=== PATIENT | male | born 1965 | race African-American/Black ===

== ENCOUNTER 2019-08-10 22:01 | Emergency (ER) | payer BC, SELFPAY ==
--- OUTSIDE RECORDS SUMMARY | 2019-08-10 22:03 | XMS REPORT | Continuity of Care Document ---
:1965 Author Organization [facility] t Address [address] [place] [address] Care Team Providers Name Role Phone Alessia HARDING, Janine Garner Attending Clinician Yohan LAUGHLIN S Attending Clinician Sonny CLIENT DELIVERY MANAGER, G Attending Clinician Problems This patient has no known problems. Allergies, Adverse Reactions, Alerts This patient has no known allergies or adverse reactions. Medications This patient has no known medications. Procedures This patient has no known procedures. Encounters Start End Encounter Admission Attending Care Care Encounter Source Date/Time Date/Time Type Type Clinicians Facility Department ID 2019-08-07 2019-08-07 Emergency [place] [id number] 01:56:28 03:54:00 Janine Lo [id number] [place] [id number] [place] [address] [id number] 2019-08-05 2019-08-05 [id number] 14:46:49 18:35:00 Eda Lo [id number] [place] [id number] [place] [address] [id number] 2019-08-04 2019-08-04 [place] [id number] 18:16:09 22:16:00 Abena Madhavi Wally [id number] [place] [id number] [place] [address] [id number] Results This patient has no known results.
--- OUTSIDE RECORDS SUMMARY | 2019-08-10 22:04 | XMS REPORT | Summary of Care ---
:1965 Author Organization [facility] Address [address] [place] [id number] Care Team Providers Name Role Phone Pcp, Patient Does Not Have A Primary Care Provider +[id number] 0-0000 Reason for Visit Reason Comments Hypertension Auth/Cert Status Reason Specialty Diagnoses / Referred By Referred To Procedures Contact Contact Emergency Medicine Diagnoses HIGH BP,HEADACHE [facility] Emergency Dept [address] [place] [address] Fax: Encounter Details Date Type Department Care Team Description 08/05/2019 Emergency ADC-Emergency Eda Almanzar, QIAN Fatigue, unspecified type (Primary Dx); Department [address] Secondary hypertension; [address] [place], [place] [address] [phone] [place] [id number] [phone] Allergies No Known Allergiesdocumented as of this encounter (statuses as of 08/05/2019) Medications Medication Sig Dispensed Refills Start Date End Date Status atenolol (TENORMIN) Take 100 mg by 0 Active 100 mg tablet mouth daily. cloniDINE (CATAPRES) Take 0.1 mg by 0 Active 0.1 mg tablet mouth 3 (three) times daily. AMLODIPINE BESYLATE Take 5 mg by mouth 0 Active (AMLODIPINE ORAL) daily. LISINOPRIL ORAL Take by mouth 0 Active daily. traMADOL (ULTRAM) 50 Take 1 tablet by 20 tablet 0 08/28/2016 Active mg tablet mouth every 6 (six) hours as needed for Pain (scale 7-10). benzonatate 200 mg Take 1 capsule by 21 capsule 0 12/10/2016 Active capsule mouth 3 (three) times daily as needed for Cough. tamsulosin 0.4 mg 24 Take 1 capsule by 30 capsule 5 12/24/2016 Active hr mouth at bedtime. capsuleIndications: Urinary frequency, Redundant prepuce and phimosis, Lichen sclerosus aspirin 81 mg Take 81 mg by 0 Ac tive chewable tablet mouth. azithromycin 250 mg Take 1 tablet by 6 tablet 0 06/02/2017 Active tabletIndications: mouth Bronchitis SEE-INSTRUCTIONS. Take 500 mg day 1, then 250 mg days 2 to 5. albuterol (PROAIR Inhale 2 Puffs 8.5 g 0 07/31/2017 Active HFA) 90 mcg/actuation every 4 (four) inhaler hours as needed for Wheezing or Shortness of Breath. cloNIDine 0.1 mg Take 1 tablet by 45 tablet 0 08/04/2019 Active tabletIndications: mouth 3 (three) Malignant times daily. hypertension documented as of this encounter (statuses as of 08/05/2019) Active Problems Problem Noted Date Chest pain 04/16/2017 HTN (hypertension) 04/16/2017 Phimosis 12/25/2016 Overview: Added automatically from request for anju karson [id number] Lichen sclerosus 12/25/2016 Overview: Added automatically from request for anju karson [id number] documented as of this encounter (statuses as of 08/05/2019) Social History Tobacco Use Types Packs/Day Years Used Date Never Smoker Smokeless Tobacco: Never Used Alcohol Use Drinks/Week oz/Week Comments No Sex Assigned at Date Recorded Not on file Job Start Date Occupation Industry Not on file Not on file Not on file Travel History Travel Start Travel End No recent travel history available. COVID-19 Exposure Response Date Recorded In the last month, have you been in contact with No / Unsure 08/04/2019 6:08 PM CDT someone who was confirmed or suspected to have Coronavirus / COVID-19? documented as of this encounter Last Filed Vital Signs Vital Sign Reading Time Taken Comments Blood Pressure 159/103 08/05/2019 6:30 PM CDT Pulse 54 08/05/2019 6:30 PM CDT Temperature 36.6 C (97.8 F) 08/05/2019 2:48 PM CDT Respiratory Rate 15 08/05/2019 6:30 PM CDT Oxygen Saturation 99% 08/05/2019 6:30 PM CDT Inhaled Oxygen Concentration - - Weight 88.5 kg (195 lb) 08/05/2019 2:48 PM CDT Height - - Body Mass Index 27.2 08/04/2019 6:15 PM CDT documented in this encounter Discharge Instructions Eda Malin PAC - 08/05/2019Take your blood pressure once or twice a day and keep a log of it. Follow up with your primary care physician for further evaluation of your blood pressure and to adjust your medication as needed. Follow up with the ER if you feel like you are getting worse or developing new symptoms such as chest pain or shortness of breath with your current symptoms. AttachmentsThe following attachments cannot be sent through Care Everywhere.High Blood Pressure, Controlling (Polish)Hypokalemia (Polish)documented in this encounter Plan of Treatment Health Maintenance Due Date Last Done Comments DTaP,Tdap,and Td Vaccines (1 - 1976 Tdap) Depression Screening 1977 COLONOSCOPY 2015 Zoster Recombinant Vaccine 2015 (SHINGRIX) (1 of 2) INFLUENZA VACCINE (Season Ended) 2019 PNEUMOCOCCAL 0-64 YEARS COMBINED Aged Out No longer eligible based on SERIES patient's age to complete this topic documented as of this encounter Procedures Procedure Name Priority Date/Time Associated Diagnosis Comme nts CBC WITH DIFFERENTIAL STAT 08/05/2019 3:17 Fatigue, unspec ified Results for this PM CDT type procedure are in Secondary the results hypertension section. CBC WITH DIFFERENTIAL STAT 08/05/2019 3:17 Fatigue, unspec ified Results for this PM CDT type procedure are in Secondary the results hypertension section. BASIC METABOLIC PANEL STAT 08/05/2019 3:17 Fatigue, unspec ified Results for this (NA, K, CL, CO2, PM CDT type procedure are in GLUCOSE, BUN, Secondary the results CREATININE, CA) hypertension section. TROPONIN I STAT 08/05/2019 3:17 Fatigue, unspecified Res ults for this PM CDT type procedure are in Secondary the results hypertension section. CONSENT/REFUSAL FOR Routine 08/05/2019 2:39 DIAGNOSIS AND PM CDT TREATMENT documented in this encounter Results CBC WITH DIFFERENTIAL (08/05/2019 3:17 PM CDT) Pathologist Sig nature WBC 2.95 (L) 4.20 - 10.70 [facility] 10*3/L [facility] RBC 5.22 4.26 - 5.52 [facility] 10*6/L [facility] HGB 13.7 12.2 - 16.4 [facility] g/dL [facility] HCT 41.2 38.4 - 49.3 % [facility] MCV 78.9 (L) 81.7 - 95.6 fL [facility] MCH 26.2 26.1 - 32.7 pg [facility] MCHC 33.3 31.2 - 35.0 [facility] g/dL [facility] RDW-SD 41.1 38.5 - 51.6 fL [facility] RDW-CV 14.4 12.1 - 15.4 % [facility] PLT 183 150 - 328 [facility] 10*3/L [facility] MPV 10.2 9.8 - 13.0 fL [facility] NRBC/100 WBC 0.0 0.0 - 10.0 /100 [facility] WBCs [facility] NRBC x10^3 <0.01 10*3/L [facility] GRAN MAT (NEUT) % 48.5 % [facility] IMM GRAN % 0.30 % [facility] LYMPH % 36.6 % [facility] MONO % 8.1 % [facility] EOS % 5.8 % [facility] BASO % 0.7 % [facility] GRAN MAT x10^3(ANC) 1.43 (L) 1.99 - 6.95 [facility] 10*3/uL [facility] IMM GRAN x10^3 <0.03 0.00 - 0.06 [facility] 10*3/uL [facility] LYMPH x10^3 1.08 (L) 1.09 - 3.23 [facility] 10*3/uL [facility] MONO x10^3 0.24 (L) 0.36 - 1.02 [facility] 10*3/uL [facility] EOS x10^3 0.17 0.06 - 0.53 [facility] 10*3/uL [facility] BASO x10^3 <0.03 0.01 - 0.09 [facility] 10*3/uL [facility] Specimen Blood - ARM, RIGHT Performing Organization Address City/State/Zipcode Phone Number [facility] CLIA: [id number], [address] [place], [place] [address] TROPONIN I (08/05/2019 3:17 PM CDT) Pathologist Sig nature TROPONIN I <0.012 <=0.034 ng/mL [facility] Specimen Blood - ARM, RIGHT Narrative Performed At Equal or Less than 0.034 ng/ml---Normal [facility] Note: Cardiac troponin begins to rise 3-4 hours after the onset of ischemia. Repeat in 4-6 hours if the sample was drawn within 3-4 hours of the onset of the symptom and found normal. Between 0.035 and 0.120 ng/mL--- Borderline. Questionable myocardial injury or necros is Note: Serial measurement may be necessary to confirm or exclude the diagnosis of myocardial injury or necrosis; Clinical correlation (symptoms, EKGs, imaging studies, and others) required; Repeat in 4-6 hours if clinically indicated. Equal or Higher than 0.121 ng/mL---Abnormal. Myocardial Injury or Necrosis Likely Biotin has been reported to cause a negative bias, interpret results relative to patient's use of biotin. Performing Organization Address [facility]/Zipcode Phone Number [facility] CLIA: [id number], [address] [place], [place] [address] BASIC METABOLIC PANEL (NA, K, CL, CO2, GLUCOSE, BUN, CREATININE, CA) (08/05/2019 3:17 PM CDT) NA 136 135 - 145 [facility] mmol/L [facility] K 3.2 (L) 3.5 - 5.0 [facility] mmol/L [facility] CL 106 98 - 108 mmol/L [facility] CO2 TOTAL 26 23 - 31 mmol/L [facility] AGAP 4 2 - 16 [facility] BUN 21 7 - 23 mg/dL [facility] GLUCOSE 127 (H) 70 - 110 mg/dL [facility] CREATININE 1.33 (H) 0.60 - 1.25 [facility] mg/dL [facility] CALCIUM 8.1 (L) 8.6 - 10.6 [facility] mg/dL [facility] eGFR Calculation 56.0 mL/min/1.73m2 [facility] ([facility] Lebanese) eGFR Calculation 67.9 mL/min/1.73m2 [facility] () [facility] Specimen Blood - ARM, RIGHT Narrative Performed At Association of Glomerular Filtration Rate (GFR) [facility] and Staging of Kidney Disease* + + +- + | GFR (mL/min/1.73 m2) | With Kidney Damage | Without Kidney Damage + + +- + | >90 | Stage one | Normal + + +- + | 60-89 | Stage two | Decreased GFR + + +- + | 30-59 | Stage three | Stage three + + +- + | 15-29 | Stage four | Stage four + + +- + | <15 (or dialysis) | Stage five | Stage five + + +- + *Each stage assumes the associated GFR level has been in effect for at least three months. Stages 1 to 5, with or without kidney disease, indicate chronic kidney disease. Notes: Determination of stages one and two (with eGFR >59mL/min/1.73 m2) requires estimation of kidney damage for at least three months as defined by structural or functional abnormalities of the kidney, manifested by either: Pathological abnormalities or Markers of kidney damage (including abnormalities in the composition of the blood or urine or abnormalities in imaging tests). Performing Organization Address City/State/Zipcode Phone Number [facility] CLIA: [id number], [address] [place] [address] [facility] documented in this encounter Visit Diagnoses Diagnosis Fatigue, unspecified type - Primary Secondary hypertension Other secondary hypertension, unspecifie d Hypokalemia Hypopotassemia documented in this encounter Administered Medications Medication Order MAR Action Action Date Dose Rate Site acetaminophen (TYLENOL) tablet Given 08/05/2019 5:44 PM CDT 975 mg 975 mg 975 mg, Oral, ONCE, 1 dose, Geni 08/05/19 at 1830, Routine cloNIDine (CATAPRES) tablet 0.1 mg Given 08/05/2019 5:44 PM CDT 0.1 mg 0.1 mg, Oral, ONCE, 1 dose, Geni 08/05/19 at 1830, STAT cloNIDine (CATAPRES) tablet 0.1 mg Given 08/05/2019 6:10 PM CDT 0.1 mg 0.1 mg, Oral, ONCE, 1 dose, Geni 08/05/19 at 1915, STAT KCL (KLOR-CON M20) tablet 40 mEq Given 08/05/2019 4:25 PM CDT 40 mEq 40 mEq, Oral, ONCE, 1 dose, Geni 08/05/19 at 1730, DIANA documented in this encounter Insurance Payer Benefit Plan Subscriber ID Effective Dates Phone Address Type / Group [facility] [id number] 1997-Prese HMO/ PPO/P ADMINISTRATION nt OS documented as of this encounter"
--- OUTSIDE RECORDS SUMMARY | 2019-08-10 22:04 | XMS REPORT | Summary of Care ---
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 [address] [address] Radiology Services (STAT) Status Reason Specialty Diagnoses / Referred By Referred To Procedures Contact Contact New Request Diagnostic Diagnoses Malignant hypertension Drever, Abena Radiology Procedures XR CHEST 1 VW G, PILLOWCASE MAKER [address] [address] Reason for Visit Reason Comments Frequent Urination DYSURIA Auth/Cert Status Reason Specialty Diagnoses / Referred By Referred To Procedures Contact Contact Emergency Medicine [facility] Em ergency Dept [address] [place] [address] Fax: Encounter Details Date Type Department Care Team Description 08/04/2019 Emergency ADC-Emergency Abena Dennis G, Dysuria ( Primary Dx); Department PILLOWCASE MAKER Urinary frequency; [address] de la cruz [address] Malignant hypertension; [place] [address] [id number] FLORENTINO (acute kidney injury); [phone] [place], [place] Hypokalemia [address] Allergies No Known Allergiesdocumented as of this encounter (statuses as of 08/04/2019) Medications Medication Sig Dispensed Refills Start Date End Date Status atenolol Take 100 mg by 0 Activ e (TENORMIN) 100 mg mouth daily. tablet cloniDINE Take 0.1 mg by 0 Activ e (CATAPRES) 0.1 mg mouth 3 tablet (three) times daily. AMLODIPINE Take 5 mg by 0 Active BESYLATE mouth daily. (AMLODIPINE ORAL) LISINOPRIL ORAL Take by mouth 0 Active daily. traMADOL (ULTRAM) Take 1 tablet 20 tablet 0 08/28/2016 Active 50 mg tablet by mouth every 6 (six) hours as needed for Pain (scale 7-10). benzonatate 200 Take 1 capsule 21 capsule 0 12/10/2016 Active mg capsule by mouth 3 (three) times daily as needed for Cough. tamsulosin 0.4 mg Take 1 capsule 30 capsule 5 12/24/2016 Active 24 hr by mouth at capsuleIndication bedtime. s: Urinary frequency, Redundant prepuce and phimosis, Lichen sclerosus aspirin 81 mg Take 81 mg by 0 Ac tive chewable tablet mouth. azithromycin 250 Take 1 tablet 6 tablet 0 06/02/2017 Active mg by mouth tabletIndications SEE-INSTRUCTIO : Bronchitis NS. Take 500 mg day 1, then 250 mg days 2 to 5. albuterol (PROAIR Inhale 2 Puffs 8.5 g 0 07/31/2017 Active HFA) 90 every 4 (four) mcg/actuation hours as inhaler needed for Wheezing or Shortness of Breath. cloNIDine 0.1 mg Take 1 tablet 45 tablet 0 08/04/2019 Active tabletIndications by mouth 3 : Malignant (three) times hypertension daily. cloNIDine 0.1 mg Take 1 tablet 45 tablet 0 08/04/2019 08/04/19 2 Discontinued tabletIndications by mouth 3 0 ( Reorder) : Malignant (three) times hypertension daily for 15 days. documented as of this encounter (statuses as of 08/04/2019) Active Problems Problem Noted Date Chest pain 04/16/2017 HTN (hypertension) 04/16/2017 Phimosis 12/25/2016 Overview: Added automatically from request for anju karson [id number] Lichen sclerosus 12/25/2016 Overview: Added automatically from request for anju karson [id number] documented as of this encounter (statuses as of 08/04/2019) Social History Tobacco Use Types Packs/Day Years [...] Sign Reading Time Taken Comments Blood Pressure 146/98 08/04/2019 9:00 PM CDT Pulse 76 08/04/2019 9:00 PM CDT Temperature 36.3 C (97.4 F) 08/04/2019 6:15 PM CDT Respiratory Rate 21 08/04/2019 9:00 PM CDT Oxygen Saturation 99% 08/04/2019 9:00 PM CDT Inhaled Oxygen Concentration - - Weight 94.3 kg (208 lb) 08/04/2019 6:15 PM CDT Height 180.3 cm (5' 11") 08/04/2019 6:15 PM CDT Body Mass Index 29.01 08/04/2019 6:15 PM CDT documented in this encounter Discharge Instructions LaDrAbena gomez NP - 08/04/2019Diagnosis: Hypertensive urgency Acute kidney injury Low potassium Increase daily water intake Start back on the clonidine 0. 1 mg three times a day Monitor blood pressure and record Follow up with your PCP in 5-7 days for recheck of blood pressure management and kidney function documented in this encounter Plan of Treatment Name Type Priority Associated Diagnoses Date/Ti me GC & CHLAMYDIA LAB STAT Urinary frequency 08/04/19 20 6:21 PM AMPLIFIED ASSAY CDT XR KUB IMAGING STAT Malignant hypertension 08/03 8:05 PM CDT Name Type Priority Associated Diagnoses Order S chedule GC & CHLAMYDIA AMPLIFIED LAB Routine Urinary frequenc y ONCE for 1 Occurrences ASSAY starting 2019 until 08/04/2019 Health Maintenance Due Date Last Done Comments [...] Name Priority Date/Time Associated Diagnosis Comme nts XR KUB STAT 08/04/2019 8:05 PM CDT Malignant hyperte nsion Procedure Note - [facility], Radia nt Results Inft User - 08/04/2019 8:12 PM CDT EXAM: XR KUB HISTORY: abdominal pain with malignant hypertension COMPARISON: None. TECHNIQUE: Supine radiograph s of the abdomen were obtained. FINDINGS: Unremarkable appearance of l mello bases, given technique. Nonspecific bowel gas patter n. No calculi identified in the distribution of the kidneys. No large calcif ications along the expected course of the ureters. No organomegaly or mass effect. No acute bone abnormalities. IMPRESSION No acute intra-abdominal fin dings. Preliminary Report Dictated by Resident: Mark Brown XR CHEST 1 VW STAT 08/04/2019 8:05 PM Malignant Results for this CDT hypertension procedure are i n the results section. CBC WITH DIFFERENTIAL STAT 08/04/2019 7:33 PM Urinary freq uency Results for this CDT procedure are i n the results section. N-TERMINAL PRO-BNP STAT 08/04/2019 7:33 PM Malignant Re sults for this CDT hypertension procedure are i n the results section. CBC WITH DIFFERENTIAL STAT 08/04/2019 7:33 PM Urinary freq uency Results for this CDT procedure are i n the results section. BASIC METABOLIC PANEL STAT 08/04/2019 7:33 PM Urinary freq uency Results for this (NA, K, CL, CO2, CDT procedure a re in GLUCOSE, BUN, the results CREATININE, CA) section. TROPONIN I STAT 08/04/2019 7:33 PM Malignant Results for this CDT hypertension procedure are i n the results section. EKG-12 LEAD Routine 08/04/2019 7:20 PM CDT URINALYSIS STAT 08/04/2019 6:21 PM Urinary frequency Res ults for this CDT procedure are i n the results section. CONSENT/REFUSAL FOR Routine 08/04/2019 6:08 PM DIAGNOSIS AND CDT TREATMENT NOTICE OF PRIVACY Routine 08/04/2019 6:08 PM PRACTICES CDT documented in this encounter Results XR CHEST 1 VW (08/04/2019 8:05 PM CDT) Specimen Impressions Performed At PACS/VR/DOSE No acute cardiopulmonary abnormality. Preliminary Report Dictated by Resident: Ameya Oliva MD., have review ed this study and agree with the above report. Narrative Performed At PROCEDURE: XR CHEST 1 VW PACS/VR/DOSE CLINICAL INDICATION: malignant hypertens ion COMPARISON: Chest x-ray dated 04/26/2018. TECHNIQUE: A single AP view of the chest was obtained. FINDINGS: Clear lungs. No pleural effusion or pneu mothorax is seen. The heart is normal in size. No acute bony abnormality. Procedure Note [facility], Radiant Results Inft User - 2019 8:23 PM CDT PROCEDURE: XR CHEST 1 VW CLINICAL INDICATION: malignant hypertens ion COMPARISON: Chest x-ray dated 04/26/2018. TECHNIQUE: A single AP view of the chest was obtained. FINDINGS: Clear lungs. No pleural effusion or pneu mothorax is seen. The heart is normal in size. No acute bony abnormality. IMPRESSION No acute cardiopulmonary abnormality. Preliminary Report Dictated by Resident: Ameya Oliva MD., have reviewe d this study and agree with the above report. Performing Organization Address City/[facility] Phone Number PACS/VR/DOSE N-TERMINAL PRO-BNP (08/04/2019 7:33 PM CDT) Pathologist Sig nature NT-proBNP 114 <=125 pg/mL [facility] Specimen Blood - VENOUS Narrative Performed At Biotin has been reported to cause a negative [facility] bias, interpret results relative to patient's use of biotin. Performing Organization Address City/[facility]/Zipcode Phone Number [facility] CLIA: [id number], [address] [place] [address] TROPONIN I (08/04/2019 7:33 PM CDT) Pathologist Sig nature TROPONIN I <0.012 <=0.034 ng/mL [facility] Specimen Blood - VENOUS Narrative Performed At Equal or Less than 0.034 ng/ml---Normal [facility] Note: Cardiac troponin begins to [...] patient's use of biotin. Performing Organization Address City/State/Zipcode Phone Number [facility] CLIA: [id number], [address] [place], [place] [address] CBC WITH DIFFERENTIAL (08/04/2019 7:33 PM CDT) Pathologist Sig nature WBC 3.37 (L) 4.20 - 10.70 [facility] 10*3/L [facility] RBC 5.57 (H) 4.26 - 5.52 [facility] 10*6/L [facility] HGB 14.6 12.2 - 16.4 [facility] g/dL [facility] HCT 43.7 38.4 - 49.3 % [facility] MCV 78.5 (L) 81.7 - 95.6 fL [facility] MCH 26.2 26.1 - 32.7 pg [facility] MCHC 33.4 31.2 - 35.0 [facility] g/dL [facility] RDW-SD 40.4 38.5 - 51.6 fL [facility] RDW-CV 14.4 12.1 - 15.4 % [facility] PLT 205 150 - 328 [facility] 10*3/L [facility] MPV 11.1 9.8 - 13.0 fL [facility] NRBC/100 WBC 0.0 0.0 - 10.0 /100 [facility] WBCs [facility] NRBC x10^3 <0.01 10*3/L [facility] GRAN MAT (NEUT) % 45.4 % [facility] IMM GRAN % 0.30 % [facility] LYMPH % 37.7 % [facility] MONO % 10.1 % [facility] EOS % 5.9 % [facility] BASO % 0.6 % [facility] GRAN MAT x10^3(ANC) 1.53 (L) 1.99 - 6.95 [facility] 10*3/uL [facility] IMM GRAN x10^3 <0.03 0.00 - 0.06 [facility] 10*3/uL HOSPITAL LAB[facility]ORY LYMPH x10^3 1.27 1.09 - 3.23 [facility] 103/uL [facility] MONO x10^3 0.34 (L) 0.36 - 1.[address]/uL [facility] EOS x10^3 0.20 0.06 - 0.53 [facility] 103/uL [facility] BASO x10^3 <0.03 0.01 - 0.09 [address]/[facility] LABORATORY Specimen Blood - VENOUS Performing Organization Address City/State/Zipcode Phone Number [facility] CLIA: [id number], [address] [place] [address] BASIC METABOLIC PANEL (NA, K, CL, CO2, GLUCOSE, BUN, CREATININE, CA) (08/04/2019 7:33 PM CDT) NA 141 135 - 145 [facility] mmol/L [facility] K 3.3 (L) 3.5 - 5.0 [facility] mmol/L [facility] CL 106 98 - 108 mmol/L [facility] CO2 TOTAL 29 23 - 31 mmol/L [facility] AGAP 6 2 - 16 [facility] BUN 19 7 - 23 mg/dL [facility] GLUCOSE 108 70 - 110 mg/dL [facility] CREATININE 1.43 (H) 0.60 - 1.25 [facility] mg/dL [facility] CALCIUM 9.1 8.6 - 10.6 [facility] mg/dL [facility] eGFR Calculation 51.5 mL/min/1.73m2 [facility] ([facility] [place]note 2] LABORATORY [place]) eGFR Calculation 62.5 mL/min/1.73m2 [facility] ([facility] LABORATORY Specimen Blood - VENOUS Narrative Performed At Association of Glomerular Filtration Rate (GFR) [facility] and Staging of Kidney Disease* + [...] abnormalities in imaging tests). Performing Organization Address City/[facility]/Zipcode Phone Number [facility] CLIA: [id number], [address] [place], [place] [address] URINALYSIS (08/04/2019 6:21 PM CDT) Pathologist Sig nature APPEARANCE Clear Clear [facility] COLOR Yellow Yellow [facility] PH 7.0 4.8 - 8.0 [facility] SP GRAVITY 1.017 1.003 - 1.030 [facility] GLU U QUAL Normal Normal [facility] BLOOD Negative Negative [facility] KETONES Negative Negative [facility] PROTEIN Negative Negative [facility] UROBILIN Normal Normal [facility] BILIRUBIN Negative Negative [facility] NITRITE Negative Negative [facility] LEUK REGINE Negative Negative [facility] RBC/HPF 3 0 - 3 HPF [facility] WBC/HPF 1 0 - 5 HPF [facility] BACTERIA Few (A) Negative [facility] MUCOUS Slight (A) Negative LPF [facility] Specimen Urine - URINE, CLEAN CATCH Performing Organization Address [facility]/Zipcode Phone Number [facility] CLIA: [id number], [address] [place], [place] [address] documented in this encounter Visit Diagnoses Diagnosis Dysuria - Primary Urinary frequency Malignant hypertension Essential hypertension, malignant FLORENTINO (acute kidney injury) Acute kidney failure, unspecified Hypokalemia Hypopotassemia documented in this encounter Administered Medications Medication Order MAR Action Action Date Dose Rate Site hydralAZINE (APRESOLINE) injection Given 08/04/2019 7:39 PM CDT 10 mg 10 mg 10 mg, Intravenous, Q6H, First dose on Geni 08/05/19 at 0000, Until Discontinued, Routine Medication Order MAR Action Action Date Dose Rate Site cloNIDine (CATAPRES) tablet 0.2 Given 08/04/2019 6:50 PM CDT 0. 2 mg mg 0.2 mg, Oral, ONCE, 1 dose, Fri08/04/19 at 1945, STAT hydralAZINE (APRESOLINE) injection 10 mg Given 08/04/2019 8:49 PM CDT 10 mg 10 mg, Intravenous, ONCE, 1 dose, Fri08/04/19 at 2115, Routine documented in this encounter Insurance Payer Benefit Plan Subscriber ID Effective Dates Phone Address Type / Group [facility] [id number] 1997-Prese HMO/ PPO/P ADMINISTRATION nt OS documented as of this encounter
--- OUTSIDE RECORDS SUMMARY | 2019-08-10 22:05 | XMS REPORT | Summary of Care ---
:1965 Author Organization [facility] Address [address] [place] [address] Care Team Providers Name Role Phone Pcp, Patient Does Not Have A Primary Care Provider +1-000-00 0-0000 Reason for Visit Reason Comments Hypertension Auth/Cert Status Reason Specialty Diagnoses / Referred By Referred To Procedures Contact Contact Emergency Medicine Diagnoses HYPERTENSION [facility] Emergency [facility] [address] [place] [address] Fax: Encounter Details Date Type Department Care Team Description 08/07/2019 Emergency ADC-Emergency Janine Aggarwal, Hypertens ion, Department MD unspecified type [address] [place] [address] Dr de [address]z [address] [facility] (Primary Dx) [place] [address] [id number] [place] [address] [phone] Allergies No Known Allergiesdocumented as of this encounter (statuses as of 08/07/2019) Medications Medication Sig Dispensed Refills Start Date [...] mouth 3 (three) Malignant times daily. hypertension hydrALAZINE 10 mg Take 1 tablet by 30 tablet 0 08/07/2019 Active tabletIndications: mouth 3 (three) Hypertension, times daily. unspecified type documented as of this encounter (statuses as of 08/07/2019) Active Problems Problem Noted Date Chest pain 04/16/2017 HTN (hypertension) 04/16/2017 Phimosis 12/25/2016 Overview: Added automatically from request for anju karson [id number] Lichen sclerosus 12/25/2016 Overview: Added automatically from request for anju karson [id number] documented as of this encounter (statuses as of 08/07/2019) Social History Tobacco Use Types Packs/Day Years [...] month, have you been in contact with Yes 08/07/2019 2:40 AM CDT someone who was confirmed or suspected to have Coronavirus / COVID-19? documented as of this encounter Last Filed Vital Signs Vital Sign Reading Time Taken Comments Blood Pressure 135/86 08/07/2019 3:43 AM CDT Pulse 78 08/07/2019 3:43 AM CDT Temperature 37.4 C (99.3 F) 08/07/2019 1:59 AM CDT Respiratory Rate 18 08/07/2019 3:00 AM CDT Oxygen Saturation 95% 08/07/2019 3:43 AM CDT Inhaled Oxygen Concentration - - Weight 90.7 kg (200 lb) 08/07/2019 1:59 AM CDT Height 180.3 cm (5' 11") 08/07/2019 1:59 AM CDT Body Mass Index 27.89 08/07/2019 1:59 AM CDT documented in this encounter Discharge Instructions Janine Altman MD - 08/07/2019 DIAGNOSIS Diagnoses that have been ruled out: None Diagnoses that are still under consideration: None Final diagnoses: Hypertension, unspecified type NO LIFE-THREATENING FINDINGS ON TODAY'S EXAM. PROCEDURES IN THE ER TODAY: Orders Placed This Encounter Procedures BASIC METABOLIC PANEL (NA, K, CL, CO2, GLUCOSE, BUN, CREATININE, CA) URINALYSIS MEDICATIONS ADMINISTERED IN THE ER TODAY AND DISCHARGE MEDICATIONS: Orders Placed This Encounter Medications hydralAZINE (APRESOLINE) injection 10 mg hydralAZINE (APRESOLINE) injection 10 mg FOLLOW-UP RECOMMENDATIONS: RECOMMEND FOLLOW-UP WITH YOUR PRIMARY CARE PROVIDER OR REFRIGERATING OILER IN 2-5 DAYS, ESPECIALLYIF NO IMPROVEMENT IN SYMPTOMS. MONITOR AND RECORD YOUR BLOOD PRESSURE FOR YOUR NEXT DOCTOR'S VISIT RETURN TO ER FOR WORSENING OF SYMPTOMS documented in this encounter Plan of Treatment Health [...] Name Priority Date/Time Associated Diagnosis Comme nts URINALYSIS STAT 08/07/2019 2:55 Hypertension, Results fo r this AM CDT unspecified type procedure a re in the results section. BASIC METABOLIC STAT 08/07/2019 2:55 Hypertension, Results for this PANEL (NA, K, CL, AM CDT unspecified type proced ure are in CO2, GLUCOSE, BUN, the resul ts CREATININE, CA) section. NOTICE OF PRIVACY Routine 08/07/2019 1:52 PRACTICES AM CDT CONSENT/REFUSAL FOR Routine 08/07/2019 1:52 DIAGNOSIS AND AM CDT TREATMENT documented in this encounter Results URINALYSIS (08/07/2019 2:55 AM CDT) Pathologist Sig nature APPEARANCE Clear Clear [facility] COLOR Straw (A) Yellow [facility] PH 7.0 4.8 - 8.0 [facility] SP GRAVITY 1.006 1.003 - 1.030 [facility] GLU U QUAL 50 mg/dL (A) Normal [facility] BLOOD Negative Negative [facility] KETONES Negative Negative [facility] PROTEIN Negative Negative [facility] UROBILIN Normal Normal [facility] BILIRUBIN Negative Negative [facility] NITRITE Negative Negative [facility] LEUK REGINE Negative Negative [facility] RBC/HPF 3 0 - 3 HPF [facility] WBC/HPF <1 0 - 5 HPF [facility] BACTERIA Negative Negative [facility] Specimen Urine - URINE, CLEAN CATCH Performing Organization Address City/State/Zipcode Phone Number [facility] CLIA: [id number], [address] [place], [place] [address] BASIC METABOLIC PANEL (NA, K, CL, CO2, GLUCOSE, BUN, CREATININE, CA) (08/07/2019 2:55 AM CDT) NA 139 135 - 145 [facility] mmol/L [facility] K 3.7 3.5 - 5.0 [facility] mmol/L [facility] CL 105 98 - 108 mmol/L [facility] CO2 TOTAL 28 23 - 31 mmol/L [facility] AGAP 6 2 - 16 [facility] BUN 16 7 - 23 mg/dL [facility] GLUCOSE 137 (H) 70 - 110 mg/dL [facility] CREATININE 1.28 (H) 0.60 - 1.25 [facility] mg/dL [facility] CALCIUM 8.7 8.6 - 10.6 [facility] mg/dL [facility] eGFR Calculation 58.6 mL/min/1.73m2 [facility] (Non- [facility] [place]) eGFR Calculation 71.0 mL/min/1.73m2 [facility]ORATORY Specimen Blood - VENOUS Narrative Performed At Association of Glomerular Filtration Rate (GFR) [facility] and Staging of Kidney [...] tests). Performing Organization Address City/State/Zipcode Phone Number [facility] CLIA: [id number], [address] [place], [place] [address] documented in this encounter Visit Diagnoses Diagnosis Hypertension, unspecified type - Primary documented in this encounter Administered Medications Medication Order MAR Action Action Date Dose Rate Site hydralAZINE (APRESOLINE) injection Given 08/07/2019 2:56 AM CDT 10 mg 10 mg 10 mg, Intravenous, Q6H, First dose on 08/07/19 at 0600, Until Discontinued, Routine documented in this encounter Insurance Payer Benefit Plan Subscriber ID Effective Dates Phone Address Type / Group [facility] [id number] 1997-Prese HMO/ PPO/P ADMINISTRATION nt OS documented as of this encounter
[2019-08-10] MEDS ORDERED: cloNIDine HCL 0.1 MG TAB ONE (23:01)
[2019-08-10 23:10] LABS: Absolute Lymphocytes (CBC) 1.3 K/uL (0.7-4.9); Basophils % 1.1 % (0-1.3); Hematocrit 43.5 % (39.6-49.0); MPV 8.7 fL (7.6-11.3); RBC Red Blood Cell Count 5.47 M/uL (4.33-5.43)
[2019-08-10 23:28] LABS: BUN Blood Urea Nitrogen 24 mg/dL (7-18); Bicarbonate 29 mmol/L (21-32); Glucose Level 133 mg/dL (74-106); Potassium 3.2 mmol/L (3.5-5.1); Sodium Level 142 mmol/L (136-145); Troponin (Emerg Dept Use Only) < 0.02 ng/mL (0.0-0.045)
[2019-08-10 23:52] LABS: Urine Bacteria <20 /HPF (NONE SEEN); Urine Culture Reflex Order NOT NEEDED; Urine RBC NONE SEEN /HPF (NONE SEEN); Urine Urothelial Cells <5 /HPF (NONE SEEN)
[2019-08-10 23:59] LABS: Urine Blood NEGATIVE (NEG); Urine Glucose NEGATIVE (NEG); Urine Protein NEGATIVE (NEG); Urine Specific Gravity 1.025 (1.005-1.030); Urine pH 7.5 (5.0-7.0)
[2019-08-11] MEDS ORDERED: HYDRALAZINE HCL 20 MG/ML VIAL ONE (00:37)
--- NOTE | 2019-08-11 00:51 | EDPHYS ---
Physician Documentation [facility] Name: Lucho Smith Age: 54 yrs Sex: Male : 1965 Arrival Date: 08/10/2019 Time: 22:04 Bed 7 Private MD: ED Physician Asa Frost HPI: 08/09 22:44 This 54 yrs old Black Male presents to ER via Ambulatory with complaints of High Blood rn Pressure. 22:44 The patient has elevated blood pressure and discovered this at home. Onset: The rn symptoms/episode began/occurred at an unknown time. Modifying factors: The symptoms are aggravated by discontinuation of meds. Severity of symptoms: At its worst the blood pressure was moderate, in the emergency department the blood pressure is unchanged. The patient has experienced similar episodes in the past. The patient has been recently seen by a physician:. Reports recently his doctor took him off his clonidine that he had been on for years, still taking lisinopril, and replaced clonidine with HCTZ. Reports mild headache and malaise. Also reports increased urinary frequency mainly at night, has had prostate issues in past. No chest pain/sob/abd pain/vomiting/focal neuro complaint. . Historical: - Allergies: 22:10 No Known Allergies; ll1 - PMHx: 22:10 Hypertension; borderline DM; ll1 - Immunization history:: Flu vaccine is up to date. - Social history:: Smoking status: Patient denies any tobacco usage or history of. Patient/guardian denies using alcohol, street drugs, tobacco products. - Family history:: not pertinent. - Hospitalizations: : No recent hospitalization is reported. ROS: 22:44 Constitutional: Negative for fever, chills, and weight loss, Eyes: Negative for injury, rn pain, redness, and discharge, Neck: Negative for injury, pain, and swelling, Cardiovascular: Negative for chest pain, palpitations, and edema, Respiratory: Negative for shortness of breath, cough, wheezing, and pleuritic chest pain, Abdomen/GI: Negative for abdominal pain, nausea, vomiting, diarrhea, and constipation, Back: Negative for injury and pain, : Negative for injury, bleeding, discharge, and swelling, MS/Extremity: Negative for injury and deformity, Skin: Negative for injury, rash, and discoloration, Neuro: Negative for weakness, numbness, tingling, and seizure. Exam: 22:44 Constitutional: This is a well developed, well nourished patient who is awake, alert, rn and in no acute distress. Ambulatory to room without assistance or difficulty. Head/Face: Normocephalic, atraumatic. Eyes: Pupils equal round, Periorbital areas with no swelling, redness, or edema. Cardiovascular: Regular rate and rhythm Respiratory: Speaking full sentences. No increased work of breathing, no retractions or nasal flaring. Skin: No evidence of cellulitis. MS/ Extremity: No cyanosis. Neurovascular intact. Full, normal range of motion. Neuro: Awake and alert, GCS 15, oriented to person, place, time, and situation. Cranial nerves II-XII grossly intact. Motor strength 5/5 in all extremities. Sensory grossly intact. Cerebellar exam normal. Normal gait. Vital Signs: 22:07 BP 182 / 111; Pulse 79; Resp 18; Temp 98.8; Pulse Ox 100% ; Pain 7/10; ll1 23:33 BP 158 / 102; Pulse 60; Resp 16 S; Pulse Ox 96% on R/A; jd3 08/10 00:26 BP 146 / 107; Pulse 60; Resp 17 S; Pulse Ox 99% on R/A; jd3 00:46 BP 137 / 98; Pulse 64; Resp 16 S; Pulse Ox 97% on R/A; jd3 MDM: 08/09 22:25 Patient medically screened. rn 08/10 00:48 Differential diagnosis: hypertensive crisis, Malignant HTN, uncontrolled hypertension. rn Data reviewed: vital signs, nurses notes, lab test result(s), EKG, radiologic studies, CT scan, and as a result, I will discharge patient. Counseling: I had a detailed discussion with the patient and/or guardian regarding: the historical points, exam findings, and any diagnostic results supporting the discharge/admit diagnosis, lab results, radiology results, the need for outpatient follow up, to return to the emergency department if symptoms worsen or persist or if there are any questions or concerns that arise at home. Response to treatment: the patient's symptoms have markedly improved after treatment, and as a result, I will discharge patient. Special discussion: I discussed with the patient/guardian in detail that at this point there is no indication for admission to the hospital. It is understood, however, that if the symptoms persist or worsen the patient needs to return immediately for re-evaluation. Based on the history and exam findings, there is no indication for further emergent testing or inpatient evaluation. I discussed with the patient/guardian the need to see the speeder frame tender for further evaluation of the symptoms. I discussed with the patient/guardian the need to see the primary care provider for further evaluation of the symptoms. ED course: UA negative, has had prostate problems in past, will give flomax and recommend urology f/u. . 08/09 22:42 Order name: CBC with Diff; Complete Time: 00:04 rn 08/09 22:42 Order name: Basic Metabolic Panel; Complete Time: 00:04 rn 08/09 22:42 Order name: CT Head Brain wo Cont rn 08/09 22:42 Order name: Troponin (emerg Dept Use Only); Complete Time: 00:04 rn 08/09 22:42 Order name: Urine Microscopic Only; Complete Time: 00:04 rn 08/09 23:14 Order name: Urine Dipstick--Ancillary (enter results); Complete Time: 00:04 mw2 08/09 22:42 Order name: IV Start; Complete Time: 23:04 rn 08/09 22:42 Order name: EKG; Complete Time: 22:43 rn 08/09 22:42 Order name: EKG - Nurse/Tech; Complete Time: 23:02 rn 08/09 22:42 Order name: Urine Dipstick-Ancillary (obtain specimen); Complete Time: 23:02 rn Administered Medications: 08/09 23:02 Drug: cloNIDine 0.2 mg Route: PO; jd3 08/10 00:00 Follow up: Response: No adverse reaction jd3 00:34 Drug: hydrALAZINE 5 mg Route: IV; Rate: calculated rate; Site: right antecubital; jd3 01:00 Follow up: Response: No adverse reaction; IV Status: Completed infusion jd3 Disposition: 08/11/19 00:50 Discharged to Home. Impression: Hypertension. - Condition is Stable. - Discharge Instructions: Hypertension, Managing Your Hypertension. - Prescriptions for Flomax 0.4 mg Oral Capsule, Sust. Release 24 hr - take 1 capsule by ORAL route once daily 1/2 hour following the same meal each day; 30 capsule. - Medication Reconciliation Form, Thank You Letter, Antibiotic Education, Prescription Opioid Use form. - Follow up: Private Physician; When: As needed; Reason: Recheck today's complaints, Re-evaluation by your physician. - Problem is chronic. - Symptoms have improved. Signatures: Dispatcher [employer] Asa Gayle MD MD rn Davies, Jonathon, RN RN jd3 Selene Alfred RN RN ll1 Corrections: (The following items were deleted from the chart) 01:00 00:50 08/11/2019 00:50 Discharged to Home. Impression: Hypertension. Condition is jd3 Stable. Forms are Medication Reconciliation Form, Thank You Letter, Antibiotic Education, Prescription Opioid Use. Follow up: Private Physician; When: As needed; Reason: Recheck today's complaints, Re-evaluation by your physician. Problem is chronic. Symptoms have improved. rn
--- NOTE | 2019-08-11 00:51 | ER ---
Nurse's Notes [facility] Name: Lucho Smith Age: 54 yrs Sex: Male : 1965 Arrival Date: 08/10/2019 Time: 22:04 Bed 7 Private MD: Diagnosis: Hypertension Presentation: 08/09 22:07 Chief complaint: Patient states: BP has been elevated lately (2 days), BP 172/115 at ll1 home today. States he is taking his meds as prescribed. + BAKER. Recently taken off clonidine. Coronavirus screen: Proceed with normal triage. Patient denies a cough. Patient denies shortness of breath or difficulty breathing. Patient denies measured and/or subjective temperature greater than 100.4F prior to today's visit. Patient denies travel on a cruise ship or to a country the [facility] currently lists as an affected area. Patient denies contact with known and/or suspected case of COVID-19. Ebola Screen: Patient denies travel to an Ebola-affected area in the 21 days before illness onset. Initial Sepsis Screen: Does the patient meet any 2 criteria? No. Patient's initial sepsis screen is negative. Risk Assessment: Do you want to hurt yourself or someone else? Patient reports no desire to harm self or others. Onset of symptoms was August 09, 2019. 22:07 Method Of Arrival: Ambulatory ll1 22:07 Acuity: KATIE 3 ll1 23:03 Initial Sepsis Screen: Does the patient have a suspected source of infection? No. jd3 Patient's initial sepsis screen is negative. Historical: - Allergies: 22:10 No Known Allergies; ll1 - PMHx: 22:10 Hypertension; borderline DM; ll1 - Immunization history:: Flu vaccine is up to date. - Social history:: Smoking status: Patient denies any tobacco usage or history of. Patient/guardian denies using alcohol, street drugs, tobacco products. - Family history:: not pertinent. - Hospitalizations: : No recent hospitalization is reported. Screenin:03 Abuse screen: Denies threats or abuse. Nutritional screening: No deficits noted. jd3 Tuberculosis screening: No symptoms or risk factors identified. Fall Risk Ambulatory Aid- None/Bed Rest/Nurse Assist (0 pts). Gait- Normal/Bed Rest/Wheelchair (0 pts) Mental Status- Oriented to own ability (0 pts). Total Lewis Fall Scale indicates No Risk (0-24 pts). Assessment: 23:02 General: Appears in no apparent distress. uncomfortable, Behavior is calm, cooperative, jd3 appropriate for age. Pain: Complains of pain in head Quality of pain is described as aching. Neuro: Level of Consciousness is awake, alert, obeys commands, Oriented to person, place, time, situation. Cardiovascular: Denies chest pain, Capillary refill < 3 seconds Patient's skin is warm and dry. Respiratory: Airway is patent Respiratory effort is even, unlabored, Respiratory pattern is regular, symmetrical, Denies cough, shortness of breath. GI: No signs and/or symptoms were reported involving the gastrointestinal system. : No signs and/or symptoms were reported regarding the genitourinary system. EENT: No signs and/or symptoms were reported regarding the EENT system. Derm: Skin is intact, Skin is dry, Skin is normal, Skin temperature is warm. Musculoskeletal: Circulation, motion, and sensation intact. Range of motion: intact in all extremities. 23:32 Reassessment: Patient appears in no apparent distress at this time. Patient and/or jd3 family updated on plan of care and expected duration. Pain level reassessed. Patient is alert, oriented x 3, equal unlabored respirations, skin warm/dry/pink. Patient states feeling better. 08/10 00:26 Reassessment: Patient appears in no apparent distress at this time. No changes from jd3 previously documented assessment. Patient and/or family updated on plan of care and expected duration. Pain level reassessed. Patient is alert, oriented x 3, equal unlabored respirations, skin warm/dry/pink. provider at bedside discussing plan of care with patient. 00:58 Reassessment: Patient appears in no apparent distress at this time. Patient and/or jd3 family updated on plan of care and expected duration. Pain level reassessed. Patient is alert, oriented x 3, equal unlabored respirations, skin warm/dry/pink. reported understanding of discharge instructions. Patient states feeling better. 06:48 Reassessment: pt notified a prescription has been called in on behalf of , pt sg stated understanding. Vital Signs: 08/09 22:07 BP 182 / 111; Pulse 79; Resp 18; Temp 98.8; Pulse Ox 100% ; Pain 7/10; ll1 23:33 BP 158 / 102; Pulse 60; Resp 16 S; Pulse Ox 96% on R/A; jd3 08/10 00:26 BP 146 / 107; Pulse 60; Resp 17 S; Pulse Ox 99% on R/A; jd3 00:46 BP 137 / 98; Pulse 64; Resp 16 S; Pulse Ox 97% on R/A; jd3 ED Course: 08/09 22:04 Patient arrived in ED. cl3 22:09 Triage completed. ll1 22:10 Arm band placed on. ll1 22:25 Asa Frost MD is Attending Physician. rn 22:43 Jorge Mann RN is Primary Nurse. jd3 23:02 EKG done, by field radio technician. reviewed by Asa Frost MD. jd3 23:03 Patient has correct armband on for positive identification. Bed in low position. Call jd3 light in reach. Side rails up X 1. Pulse ox on. NIBP on. 23:05 Inserted saline lock: 20 gauge in right antecubital area, using aseptic technique. ea Blood collected. 23:24 CT Head Brain wo Cont In Process Unspecified. EDMS 08/10 00:59 No provider procedures requiring assistance completed. IV discontinued, intact, jd3 bleeding controlled, No redness/swelling at site. Pressure dressing applied. Administered Medications: 08/09 23:02 Drug: cloNIDine 0.2 mg Route: PO; jd3 08/10 00:00 Follow up: Response: No adverse reaction jd3 00:34 Drug: hydrALAZINE 5 mg Route: IV; Rate: calculated rate; Site: right antecubital; jd3 01:00 Follow up: Response: No adverse reaction; IV Status: Completed infusion jd3 Outcome: 00:50 Discharge ordered by . rn 00:59 Discharged to home ambulatory, with family. jd3 00:59 Condition: stable 00:59 Discharge instructions given to patient, Instructed on discharge instructions, follow up and referral plans. medication usage, Demonstrated understanding of instructions, follow-up care, medications, Prescriptions given X 1. 01:00 Patient left the ED. jd3 06:47 Instructed on prescription phoned in to [facility] pharmacy for Clonidine 0.2 mg PO sg BID disp 60 per Signatures: Dispatcher [employer] EDPR Jim Brown, RN RN sg Asa Frost MD MD rn Alicia, Socorro RN RN Jorge Harkins RN RN jd3 Jeannette Alfred3 Selene Alfred RN RN ll1
[2019-08-11 01:10] VITALS: TEMP 98.8
[2019-08-11 01:14] VITALS: BP 137/98; O2SAT 97
--- NOTE | 2019-08-11 06:25 | EKG ---
Test Date: 2019-08-10 Test Time: 22:56:47 Assistant Corporate Controller: ANA MEASUREMENT RESULTS: Intervals: Rate: 70 [place]: 174 QRSD: 94 QT: 402 QTc: 434 Dawson: P: 39 [place]: 174 QRS: 44 T: 38 INTERPRETIVE STATEMENTS: Normal sinus rhythm Normal ECG Compared to ECG 08/19/2008 17:27:53 ST (T wave) deviation no longer present Electronically Signed On 08-11-19 06:24:17 CDT by Paulie Zamorano
--- NOTE | 2019-08-11 20:49 | RAD REPORT ---
EXAM DESCRIPTION: CT Head Without Intravenous Contrast CLINICAL HISTORY: The patient is 54 years old and is Male; HTN;Headache TECHNIQUE: Axial computed tomography images of the head/brain without intravenous contrast. Sagitt al and coronal reformatted images were created and reviewed. This CT exam was performed using one o r more of the following dose reduction techniques: automated exposure control, adjustment of the mA and/or kV according to patient size, and/or use of iterative reconstruction technique. COMPARISON: No relevant prior studies available. FINDINGS: BRAIN: Unremarkable. The tang-white matter differentiation is preserved . No hemorrhag e. No significant white matter disease. No edema. No extra-axial fluid collections. VENTRICLES: Unremarkable. No ventriculomegaly. BONES/JOINTS: No acute fracture. SOFT TISSUES: Unremarkable. SINUSES: Unremarkable as visualized. No acute sinusitis. MASTOID AIR CELLS: Unremarkable as visualized. No mastoid effusion. ORBITS: Unremarkable as visualized. IMPRESSION: No acute intracranial findings. Electronically signed by: Noreen Ramirez MD 08/10/2019 11:29 PM CDT Due to temporary technical issues with the PACS/Fluency reporting system, reports are being signed by the in house radiologist without review as a courtesy to ensure prompt reporting. The interpreting r adiologist is fully responsible for the content of the report.
== END 2019-08-11 01:00 | disposition home or self-care (01) ==
LOC: ER 22:01
DX: I10 Essential (primary) hypertension (principal); R73.03 Prediabetes
CPT/HCPCS: 36415; 70450; 80048; 81003; 81015; 84484; 85025; 93005; 96365; 99284; J0360

== ENCOUNTER 2019-08-11 23:26 | Observation (INO) | payer SELFPAY ==
--- OUTSIDE RECORDS SUMMARY | 2019-08-11 23:28 | XMS REPORT | Continuity of Care Document ---
:1965 Author Organization [facility] t Address [address] [place] [address] Care Team Providers Name Role Phone Janine Aggarwal MD S Attending Clinician Yohan LAUGHLIN S Attending Clinician Sonny RETAIL ADVERTISING ACCOUNT EXECUTIVE, G Attending Clinician Problems This patient has no known problems. Allergies, Adverse Reactions, Alerts This patient has no known allergies or adverse reactions. Medications This patient has no known medications. Procedures This patient has no known procedures. Encounters Start End Encounter Admission Attending Care Care Encounter Source Date/Time Date/Time Type Type Clinicians Facility Department ID 2019-08-07 2019-08-07 Emergency [facility] [id number] 01:56:28 03:54:00 Janine Lo [id number] [place] [id number] [place] [id number] 2019-08-05 2019-08-05 [facility] [id number] 14:46:49 18:35:00 Eda Patsy Wally [id number] [place] [id number] [place] [id number] 2019-08-04 2019-08-[address] [facility] [id number] 18:16:09 22:16:00 Abena Hendrickson Wally [id number] [place] [id number] [place] [id number] Results This patient has no known results.
[2019-08-12] MEDS ORDERED: LORazepam 2 MG/ML VIAL ONE (00:15)
[2019-08-12 00:43] LABS: Absolute Lymphocytes (CBC) 1.1 K/uL (0.7-4.9); Lymphocytes % 36.5 % (15.3-44.8); MPV 9.2 fL (7.6-11.3); RBC Red Blood Cell Count 5.32 M/uL (4.33-5.43)
[2019-08-12 00:55] LABS: Potassium 3.3 mmol/L (3.5-5.1); Sodium Level 140 mmol/L (136-145)
[2019-08-12 00:59] LABS: BUN Blood Urea Nitrogen 24 mg/dL (7-18); Bicarbonate 27 mmol/L (21-32); Glucose Level 128 mg/dL (74-106)
--- NOTE | 2019-08-12 01:01 | EDPHYS ---
Physician Documentation [facility] Name: Lucho Smith Age: 54 yrs Sex: Male : 1965 Arrival Date: 08/11/2019 Time: 23:27 Bed 14 Private MD: ED Physician Asa Frost HPI: 08/10 23:55 This 54 yrs old Black Male presents to ER via Ambulatory with complaints of High Blood snw Pressure. 23:55 The patient has elevated blood pressure and discovered this at home, with a home snw device. Onset: The symptoms/episode began/occurred fluctuation over time. Associated signs and symptoms: Pertinent positives: headache, lightheadedness, nausea, feeling of flow through hands. Severity of symptoms: At its worst the blood pressure was 190 mm Hg, pt took additional .2mg Clonidine. The patient has experienced similar episodes in the past. The patient has been recently seen by a physician: The patient has been recently seen at the [facility] Emergency Department, today, for similar complaints. 08/11 00:00 Pt has been to three ED's in as many days as he is very nervous about his blood snw pressure. . Historical: - Allergies: 08/10 23:42 No Known Allergies; ea - Home Meds: 23:42 clonidine HCl Oral [Active]; ea - PMHx: 23:42 borderline DM; Hypertension; ea - Immunization history:: Adult Immunizations up to date. - Social history:: Smoking status: Patient denies any tobacco usage or history of. ROS: 23:54 Constitutional: Negative for fever, chills, and weight loss, Eyes: Negative for injury, snw pain, redness, and discharge, ENT: Negative for injury, pain, and discharge, Neck: Negative for injury, pain, and swelling, Respiratory: Negative for shortness of breath, cough, wheezing, and pleuritic chest pain, Abdomen/GI: Negative for abdominal pain, nausea, vomiting, diarrhea, and constipation, Back: Negative for injury and pain, : Negative for injury, bleeding, discharge, and swelling, MS/Extremity: Negative for injury and deformity, Skin: Negative for injury, rash, and discoloration. 23:54 Cardiovascular: Positive for fluctuation in blood pressure, feeling bad but denies chest pain. 23:54 Neuro: Positive for headache. 23:54 Psych: Positive for anxiety. Exam: 23:52 Head/Face: Normocephalic, atraumatic. Eyes: Pupils equal round and reactive to light, snw extra-ocular motions intact. Lids and lashes normal. Conjunctiva and sclera are non-icteric and not injected. Cornea within normal limits. Periorbital areas with no swelling, redness, or edema. ENT: Nares patent. No nasal discharge, no septal abnormalities noted. Tympanic membranes are normal and external auditory canals are clear. Oropharynx with no redness, swelling, or masses, exudates, or evidence of obstruction, uvula midline. Mucous membranes moist. Neck: Trachea midline, no thyromegaly or masses palpated, and no cervical lymphadenopathy. Supple, full range of motion without nuchal rigidity, or vertebral point tenderness. No Meningismus. Chest/axilla: Normal chest wall appearance and motion. Nontender with no deformity. No lesions are appreciated. Cardiovascular: Regular rate and rhythm with a normal S1 and S2. No gallops, murmurs, or rubs. Normal PMI, no JVD. No pulse deficits. Respiratory: Lungs have equal breath sounds bilaterally, clear to auscultation and percussion. No rales, rhonchi or wheezes noted. No increased work of breathing, no retractions or nasal flaring. Abdomen/GI: Soft, non-tender, with normal bowel sounds. No distension or tympany. No guarding or rebound. No evidence of tenderness throughout. Back: No spinal tenderness. No costovertebral tenderness. Full range of motion. Skin: Warm, dry with normal turgor. Normal color with no rashes, no lesions, and no evidence of cellulitis. MS/ Extremity: Pulses equal, no cyanosis. Neurovascular intact. Full, normal range of motion. Neuro: Awake and alert, GCS 15, oriented to person, place, time, and situation. Cranial nerves II-XII grossly intact. Motor strength 5/5 in all extremities. Sensory grossly intact. Cerebellar exam normal. Normal gait. 23:52 Constitutional: The patient appears alert, awake, anxious, uncomfortable. 23:52 Psych: Affect is pt is clearly concerned about blood pressure. He is concerned he is going to .. Oriented to person, place, time. 08/11 00:29 ECG was reviewed by the Attending Physician. snw Vital Signs: 08/10 23:39 BP 160 / 99; Pulse 83; Resp 18; Temp 97.8; Pulse Ox 99% on R/A; Weight 93.89 kg; Height ea 5 ft. 11 in. (180.34 cm); 08/11 00:40 BP 121 / 84; Pulse 63; Resp 16; Pulse Ox 95% on R/A; jb4 01:30 BP 119 / 83; Pulse 62; Resp 16; Pulse Ox 96% on R/A; jb4 02:20 BP 122 / 86; Pulse 60; Resp 12; Pulse Ox 100% on R/A; jb4 08/10 23:39 Body Mass Index 28.87 (93.89 kg, 180.34 cm) ea MDM: 08/10 23:29 Patient medically screened. snw 08/11 00:55 Data reviewed: vital signs, nurses notes. Data interpreted: Pulse oximetry: on room air snw is 99 %. Interpretation: normal. Counseling: I had a detailed discussion with the patient and/or guardian regarding: the historical points, exam findings, and any diagnostic results supporting the discharge/admit diagnosis, the presence of at least one elevated blood pressure reading (>120/80) during this emergency department visit, lab results, the need for further work-up and treatment in the hospital. Physician consultation: Adrien Albrecht MD was called at 00:55, was contacted at 00:56, regarding admission, to the telemetry unit. Dr. Albrecht kindly accepts pt for admission.. 08/10 23:51 Order name: CBC with Diff; Complete Time: 00:58 snw 08/10 23:51 Order name: Chem 7 sn 08/10 23:51 Order name: Troponin (emerg Dept Use Only) formerly [facility] 08/10 23:51 Order name: TSH sn 08/11 01:54 Order name: Lipid Profile [facility] 08/11 01:54 Order name: Lipid Profile [facility] 08/10 23:51 Order name: EKG; Complete Time: 23:51 snw 08/10 23:51 Order name: EKG - Nurse/Tech; Complete Time: 00:27 snw 08/10 23:51 Order name: Saline Lock; Complete Time: 00:07 snw 08/11 01:55 Order name: Heart Healthy [facility] 08/11 01:55 Order name: Echo with Doppler EDMS EC:29 Rate is 68 beats/min. QRS [place] is Normal. SC interval is normal. QRS interval is snw normal. QT interval is normal. Clinical impression: Normal ECG. Administered Medications: 00:27 Not Given (Patient Refused): Ativan 1 mg IVP once jb4 Disposition: 04:24 Co-signature as Attending Physician, Asa Frost MD. rn Disposition: 08/12/19 00:58 Hospitalization ordered by Adrien Albrecht for Observation. Preliminary diagnosis is Essential (primary) hypertension - uncontrolled. - Bed requested for Telemetry/MedSurg (observation). - Status is Observation. jb4 - Condition is Stable. - Problem is an acute exacerbation. - Symptoms are unchanged. Signatures: Dispatcher [employer] EDMS Analy Puga, MANAGEMENT TRAINEE-C MANAGEMENT TRAINEE-Csnw Tasia Prince ds1 Asa Frost MD MD rn Lasagna, Tonya, RN RN tl1 Kameron Mcunlty RN RN jb4 Socorro Vargas RN RN ea Corrections: (The following items were deleted from the chart) 02:03 00:58 Hospitalization Ordered by Adrien Albrecht MD for Observation. Preliminary tl1 diagnosis is Essential (primary) hypertension - uncontrolled. Bed requested for Telemetry/MedSurg (observation). Status is Observation. Condition is Stable. Problem is an acute exacerbation. Symptoms are unchanged. snw 02:08 02:03 08/12/2019 00:58 Hospitalization Ordered by Adrien Albrecht MD for Observation. ds1 Preliminary diagnosis is Essential (primary) hypertension - uncontrolled. Bed requested for Telemetry/MedSurg (observation). Status is Observation. Condition is Stable. Problem is an acute exacerbation. Symptoms are unchanged. tl1 02:58 02:08 08/12/2019 00:58 Hospitalization Ordered by Adrien Albrecht MD for Observation. jb4 Preliminary diagnosis is Essential (primary) hypertension - uncontrolled. Bed requested for Telemetry/MedSurg (observation). Status is Observation. Condition is Stable. Problem is an acute exacerbation. Symptoms are unchanged. ds1
--- NOTE | 2019-08-12 01:01 | ER ---
Nurse's Notes [facility] Name: Lucho Smith Age: 54 yrs Sex: Male : 1965 Arrival Date: 08/11/2019 Time: 23:27 Bed 14 Private MD: Diagnosis: Essential (primary) hypertension-uncontrolled Presentation: 08/10 23:39 Chief complaint: Patient states: Reports his blood pressure has been high for the past ea three days. Pt reports being seen in the ED yesterday for high blood pressure. Coronavirus screen: Proceed with normal triage. Ebola Screen: No symptoms or risks identified at this time. Initial Sepsis Screen: Does the patient meet any 2 criteria? No. Patient's initial sepsis screen is negative. Does the patient have a suspected source of infection? No. Patient's initial sepsis screen is negative. Risk Assessment: Do you want to hurt yourself or someone else? Patient reports no desire to harm self or others. Onset of symptoms was August 11, 2019. 23:39 Method Of Arrival: Ambulatory ea 23:39 Acuity: KATIE 3 ea Triage Assessment: 23:42 General: Appears uncomfortable, Behavior is appropriate for age. Pain: Complains of ea pain in headache. Neuro: Level of Consciousness is awake, alert, obeys commands, Oriented to person, place, time. Cardiovascular: Patient's skin is warm and dry. Respiratory: Airway is patent Respiratory effort is even, unlabored, Respiratory pattern is regular, symmetrical. Historical: - Allergies: 23:42 No Known Allergies; ea - Home Meds: 23:42 clonidine HCl Oral [Active]; ea - PMHx: 23:42 borderline DM; Hypertension; ea - Immunization history:: Adult Immunizations up to date. - Social history:: Smoking status: Patient denies any tobacco usage or history of. Screenin:41 Abuse screen: Denies threats or abuse. Nutritional screening: No deficits noted. ea Tuberculosis screening: No symptoms or risk factors identified. Fall Risk None identified. Assessment: 23:45 General: Appears in no apparent distress. uncomfortable, Behavior is calm, cooperative, jb4 appropriate for age. Pain: Complains of pain in headache Pain does not radiate. Pain currently is 8 out of 10 on a pain scale. Quality of pain is described as feeling like a migraine headache. Neuro: Level of Consciousness is awake, alert, obeys commands, Oriented to person, place, time, situation. Cardiovascular: Patient's skin is warm and dry. Rhythm is sinus rhythm. Respiratory: Airway is patent Respiratory effort is even, unlabored, Respiratory pattern is regular, symmetrical. GI: No signs and/or symptoms were reported involving the gastrointestinal system. : No signs and/or symptoms were reported regarding the genitourinary system. EENT: No signs and/or symptoms were reported regarding the EENT system. Derm: Skin is intact, Skin is dry, Skin is normal, Skin temperature is warm. Musculoskeletal: Circulation, motion, and sensation intact. Range of motion: intact in all extremities. 08/11 00:30 Reassessment: Patient appears in no apparent distress at this time. Patient and/or jb4 family updated on plan of care and expected duration. Pain level reassessed. Patient is alert, oriented x 3, equal unlabored respirations, skin warm/dry/pink. 01:30 Reassessment: Patient appears in no apparent distress at this time. Patient and/or jb4 family updated on plan of care and expected duration. Pain level reassessed. Patient is alert, oriented x 3, equal unlabored respirations, skin warm/dry/pink. Patient states feeling better. Patient states symptoms have improved. 02:30 Reassessment: Patient appears in no apparent distress at this time. Patient and/or jb4 family updated on plan of care and expected duration. Pain level reassessed. Patient is alert, oriented x 3, equal unlabored respirations, skin warm/dry/pink. Patient states feeling better. Patient states symptoms have improved. Vital Signs: 08/10 23:39 BP 160 / 99; Pulse 83; Resp 18; Temp 97.8; Pulse Ox 99% on R/A; Weight 93.89 kg; Height ea 5 ft. 11 in. (180.34 cm); 08/11 00:40 BP 121 / 84; Pulse 63; Resp 16; Pulse Ox 95% on R/A; jb4 01:30 BP 119 / 83; Pulse 62; Resp 16; Pulse Ox 96% on R/A; jb4 02:20 BP 122 / 86; Pulse 60; Resp 12; Pulse Ox 100% on R/A; jb4 08/10 23:39 Body Mass Index 28.87 (93.89 kg, 180.34 cm) ED Course: 08/10 23:27 Patient arrived in ED. ds1 23:29 Analy Puga FNP-C [facility]. snw 23:29 Asa Frost MD is Attending Physician. snw 23:40 Triage completed. ea 23:41 Arm band placed on right wrist. Patient placed in an exam room, on a stretcher, on ea pulse oximetry. 23:41 Patient has correct armband on for positive identification. Bed in low position. Call ea light in reach. slip cover cutter on. Pulse ox on. NIBP on. 23:53 Kameron Mcnulty, RN is Primary Nurse. jb4 23:55 Inserted saline lock: 20 gauge in right forearm, using aseptic technique. Blood jb4 collected. 08/11 00:57 Adrien Albrecht MD is Hospitalizing Provider. snw 02:20 No provider procedures requiring assistance completed. Patient admitted, IV remains in jb4 place. Administered Medications: 00:27 Not Given (Patient Refused): Ativan 1 mg IVP once jb4 Outcome: 00:58 Decision to Hospitalize by Provider. snw 02:30 Admitted to Med/surg accompanied by nurse, via wheelchair, room 213, with chart, Report jb4 called to KRYSTAL Mackey 02:30 Condition: stable 02:30 Discharge instructions given to patient, Instructed on the need for admit, Demonstrated understanding of instructions. 02:58 Patient left the ED. jb4 Signatures: Analy Puga FNP-C INTERNET MARKETING EXECUTIVE-Csnw Prince, Tasia ds1 Kameron Mcnulty, RN KRYSTAL jb4 Socorro Vargas RN RN ea
[2019-08-12 01:07] LABS: Troponin (Emerg Dept Use Only) < 0.02 ng/mL (0.0-0.045)
[2019-08-12] MEDS ORDERED: MORPHINE 4 MG/ML SYR IV PRN (01:49)
[2019-08-12] MEDS ORDERED: AMLODIPINE 5 MG TAB PO ONE (01:49)
[2019-08-12] MEDS ORDERED: ALPRAZOLAM 0.25 MG TABLET PO PRN (01:49)
[2019-08-12] MEDS ORDERED: ACETAMINOPHEN 500 MG TAB PO PRN (01:49)
[2019-08-12 03:44] VITALS: BMI 27.3
[2019-08-12 05:25] VITALS: BP 141/88
[2019-08-12] MEDS ORDERED: AMLODIPINE 10 MG TAB PO SCH ×2 (06:00)
[2019-08-12] MEDS ORDERED: METOPROLOL TAR 50 MG TAB PO SCH ×2 (06:00)
[2019-08-12 06:40] VITALS: TEMP 97.5
[2019-08-12] MEDS ORDERED: ISOSORBIDE DINIT 5 MG TAB PO SCH ×2 (07:00→09:00)
--- NOTE | 2019-08-12 07:25 | EKG ---
Test Date: 2019-08-12 Test Time: 00:11:17 Dredge Captain: TT MEASUREMENT RESULTS: Intervals: Rate: 68 RI: 178 QRSD: 98 QT: 414 QTc: 440 [place]: P: 49 RI: 178 QRS: 62 T: 39 INTERPRETIVE STATEMENTS: Normal sinus rhythm Normal ECG Compared to ECG 08/10/2019 22:56:47 No significant changes Electronically Signed On 08-12-19 07:24:03 CDT by Paulie Zamorano
--- NOTE | 2019-08-12 08:31 | P.HP ---
Certification for Inpatient Patient admitted to: Observation With expected LOS: <2 Midnights Patient will require the following post-hospital care: None Practitioner: I am a practitioner with admitting privileges, knowledge of patient current condition, hospital course, and medical plan of care. Services: Services provided to patient in accordance with Admission requirements found in Title 42 Section 412.3 of the Code of Federal Regulations Patient History Date of Service: 08/12/19 Reason for admission: Uncontrolled hypertension History of Present Illness: Patient is a 54-year-old gentleman who came into the hospital with uncontrolled hypertension. Patient was on clonidine but he was told by his PCP to stop it. He was placed on diuretics and he stopped the clonidine without slowly weaning himself all. He has been having uncontrolled blood pressure the last week and has been taking extra doses of his clonidine and coming into the emergency room daily. It looks like he has rebound hypertension from stopping the clonidine. He will be admitted to the hospital but he will be worked up with echo and strict blood pressure control. Will go ahead and start him on clonidine but gradually taper him off over the course of the next 2-3 weeks. He will need to continue close outpatient follow with his primary care provider. Allergies No Known Allergies Allergy (Verified 08/12/19 02:50) Home Medications: ALPRAZolam [Xanax*] 0.25 mg PO TID PRN #30 tab 08/12/19 Amlodipine [Norvasc*] 10 mg PO DAILY #30 tab 08/12/19 Metoprolol Tartrate [Lopressor*] 50 mg PO BID 6AM 6PM #60 tab 08/12/19 - Past Medical/Surgical History Has patient received pneumonia vaccine in the past: No Diabetic: No -: HTN -: Borderline DM -: Enlarged prostate -: none - Family History Father Medical History: Hypertension - Social History Smoking Status: Never smoker Alcohol use: No CD- Drugs: No Caffeine use: Yes Review of Systems 10-point ROS is otherwise unremarkable Physical Examination - Vital Signs Temperature: 97.5 F Blood Pressure: 141/88 Pulse: 64 Respirations: 16 Pulse Ox (%): 100 - Physical Exam General: Alert, In no apparent distress, Oriented x3 HEENT: Atraumatic, PERRLA, Mucous membr. moist/pink, EOMI, Sclerae nonicteric Neck: Supple, 2+ carotid pulse no bruit, No LAD, Without JVD or thyroid abnormality Respiratory: Clear to auscultation bilaterally, Normal air movement Cardiovascular: Regular rate/rhythm, Normal S1 S2, No murmurs Gastrointestinal: Normal bowel sounds, Soft and benign, Non-distended, No tenderness Musculoskeletal: No clubbing, No swelling, No tenderness Integumentary: No rashes Neurological: Normal gait, Normal speech, Normal strength at 5/5 x4 extr, Normal tone, Normal affect Lymphatics: No axilla or inguinal lymphadenopathy - Studies Laboratory Data (last 24 hrs) 08/12/19 00:20: WBC 3.0 L, Hgb 13.7, Hct 42.0, Plt Count 176 08/12/19 00:00: Sodium 140, Potassium 3.3 L, BUN 24 H, Creatinine 1.47 H, Glucose 128 H Assessment & Plan - Problems (Diagnosis) (1) Uncontrolled hypertension Status: Acute (2) Chronic kidney disease Status: Acute (3) Type 2 diabetes mellitus Status: Acute (4) Rebound hypertension Status: Acute - Plan Plan: 1. Change antihypertensives to amlodipine and metoprolol 2. Strict blood pressure control 3. Echocardiogram 4. Discharge later today and return to work on Friday 5. 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 DVT prophylaxis while patient is in the hospital Discharge Plan: Home Plan to discharge in: 24 Hours - Advance Directives Does patient have a Living Will: No Does patient have a Durable POA for Healthcare: No Critical Care: No Time Spent Managing PTS Care (In Minutes): 40 Home Medications: ALPRAZolam [Xanax*] 0.25 mg PO TID PRN #30 tab 08/12/19 Amlodipine [Norvasc*] 10 mg PO DAILY #30 tab 08/12/19 Metoprolol Tartrate [Lopressor*] 50 mg PO BID 6AM 6PM #60 tab 08/12/19 Patient Discharge Instructions: OK TO DC IV AND DC HOME. FOLLOW-UP WITH PRIMARY CARE PROVIDER IN 1-2 WEEKS. FOLLOW-UP WITH CARDIOLOGY IN 1-2 WEEKS. RETURN TO THE ER IF symptoms worsen. CALL or TEXT DR. WESTFALL AT [phone] IF ANY QUESTIONS REGARDING HOSPITAL STAY. PLEASE CALL THE FLOOR AT [phone] IF ANY MEDICATION OR NURSING QUESTIONS. Diet: AHA Activity: Fall precautions Time spent managing pt's care (in minutes): 60
[2019-08-12] MEDS ORDERED: ASPIRIN EC 81 MG TAB PO SCH (09:00)
[2019-08-12] MEDS ORDERED: ENOXAPARIN 40 MG/0.4 ML SQ SCH (09:00)
[2019-08-12] MEDS ORDERED: HYDRALAZINE HCL 25 MG TABLET PO SCH (09:00)
--- NOTE | 2019-08-12 10:53 | ECHO ---
HEIGHT: 5 ft 11 in WEIGHT: 196 lb 6.4 oz DATE OF STUDY: 08/12/[address]: Adrien Albrecht MD 2-DIMENSIONAL: YES M.MODE: YES DOPPLER: YES COLOR FLOW: YES TDS: NO PORTABLE: NO DEFINITY: NO BUBBLE STUDY: NO DIAGNOSIS: CHEST PAIN CARDIAC HISTORY: CATHERIZATION: NO SURGERY: NO PROSTHETIC VALVE: NO PACEMAKER: NO MEASUREMENTS (cm) DIASTOLIC (NORMALS) SYSTOLIC (NORMALS) IVSd 1.1 (0.6-1.2) LA Diam 3.3 (1.9-4.0) LVEF 61% LVIDd 4.1 (3.5-5.7) LVIDs 2.8 (2.0-3.5) %FS 32% LVPWd 1.0 (0.6-1.2) Ao Diam 2.4 (2.0-3.7) 2 DIMENSIONAL ASSESSMENT: RIGHT ATRIUM: NORMAL LEFT ATRIUM: NORMAL RIGHT VENTRICLE: NORMAL LEFT VENTRICLE: NORMAL TRICUSPID VALVE: NORMAL MITRAL VALVE: NORMAL PULMONIC VALVE: NORMAL AORTIC VALVE: SCLEROSIS PERICARDIAL EFFUSION: NONE AORTIC ROOT: NORMAL LEFT VENTRICULAR WALL MOTION: NORMAL DOPPLER/COLOR FLOW: NORMAL COMMENTS: MILD AORTIC SCLEROSIS WITH NO STENOSIS. NORMAL LEFT VENTRICULAR SIZE AND FUNCTION. NO WALL MOTION ABNORMALITY. NO EFFUSION. TECHNOLOGIST: Lamin DC
[2019-08-12 12:27] VITALS: O2SAT 100
== END 2019-08-12 13:55 | disposition home or self-care (01) ==
LOC: ER 23:26 → ERHOLD 08-12 01:56 → 2ND 08-12 02:18
PROVIDERS: ADMIT Hospitalist; ATTEND Hospitalist
DX: I12.9 Hypertensive chronic kidney disease with stage 1 through stage 4 chronic kidney disease, or unspecified chronic kidney disease (principal); E11.22 Type 2 diabetes mellitus with diabetic chronic kidney disease; N18.9 Chronic kidney disease, unspecified; I35.8 Other nonrheumatic aortic valve disorders; Z79.899 Other long term (current) drug therapy
CPT/HCPCS: 36415; 80048; 80061; 84443; 84484; 85025; 93005; 93306; 99285; G0378; J1650